=== PATIENT | female | born 1955 ===

== ENCOUNTER 2021-04-26 09:19 | Day surgery (SDC) | payer OTHER ==
[~2021-04-26] VITALS: Ht 157.5 cm; Wt 102.5 kg
[2021-04-26] MEDS ORDERED: MYRBETR50MG PO (09:39)
[2021-04-26] MEDS ORDERED: PRINIVIL20 MG PO (09:40)
[2021-04-26] MEDS ORDERED: MASON NATURAL2000 IU PO (09:40)
[2021-04-26 09:45] VITALS: BP 130/68; PULSE 85; TEMP 97.8
[2021-04-26 11:10] VITALS: BP 115/49; PULSE 72; TEMP 98.1
--- NOTE | 2021-04-26 11:10 | NUR ---
PATIENT BROUGHT BACK TO [place] [facility] AMBULATED WITHOUT DIFFICULTY. JOY AT BEDSIDE. IV INFUSING. PLACED ON MONITORS, VITAL SIGNS STABLE. PATIENT REQUESTS MUFFIN AND CRANBERRY JUICE. WARM BLANKET PROVIDED, CALL WAITE WITHIN REACH. MELANIE KELLY AT BEDSIDE FOR REPORT. WILL CONTINUE TO MONITOR. 1125- VITAL SIGNS STABLE. DR. HUANG AT BEDSIDE TO EXPLAIN RESULTS. TOLERATING FOOD AND DRINK WITHOUT DIFFICULTY. WILL MONITOR. 1140- PATIENT STATES SHE FEELS READY TO GO HOME AT THIS TIME. 1150- IV REMOVED, INTACT. DISCHARGE INSTRUCTIONS REVIEWED WITH PATIENT AND FAMILY MEMBER. ALL QUESTIONS ANSWERED. PATIENT TO GET DRESSED AT THIS TIME. PER DR. HUANG USE OVER THE COUNTER IMMODIUM FOR SYMPTOMS UNTIL BIOPSY RESULTS ARE BACK. PATIENT TO GET DRESSED AT THIS TIME. 1200- PATIENT BROUGHT DOWN TO LOBBY VIA WHEEL CHAIR. ALL BELONGINGS IN HAND. TO BE DRIVEN BY JOY.
[2021-04-26 11:25] VITALS: BP 107/64; PULSE 84
[2021-04-26 11:40] VITALS: BP 123/57; PULSE 90
== END 2021-04-26 12:00 | disposition home or self-care (01) ==
LOC: SDCO 09:19
DX: R19.7 Diarrhea, unspecified (principal); K64.0 First degree hemorrhoids; K57.30 Diverticulosis of large intestine without perforation or abscess without bleeding; M81.0 Age-related osteoporosis without current pathological fracture; I10 Essential (primary) hypertension; E66.9 Obesity, unspecified; N39.41 Urge incontinence; Z79.899 Other long term (current) drug therapy; Z79.83 Long term (current) use of bisphosphonates; Z98.84 Bariatric surgery status
CPT/HCPCS: J2704; J7120